=== PATIENT | female | born 1995 | race Caucasian/White ===

== ENCOUNTER 2020-09-06 00:53 | Emergency (ER) | payer OTHER ==
[2020-09-06 01:05] VITALS: BP 108/74; PULSE 88; TEMP 98.3; BMI 25.4
[2020-09-06 01:36] LABS: BASO % 1.1 % (0-2.0); EOS % 1.7 % (0-4.5); HEMATOCRIT 38.7 % (32.4-45.2); LYMPH % 21.7 % (8-40); MCH 29.2 pg (25.7-33.7); MCHC 33.6 g/dl (32.0-36.0); MEAN CELL VOLUME 86.9 fl (80-96); MEAN PLT VOLUME 9.7 fl (7.5-11.1); MONO % 7.6 % (3.8-10.2); NEUT % 67.9 % (42.8-82.8); PLATELET COUNT 219 K/MM3 (134-434); RBC 4.45 M/mm3 (3.60-5.2); RDW 13.3 % (11.6-15.6); WHITE BLOOD COUNT 9.3 K/mm3 (4.0-10.0)
[2020-09-06 01:55] LABS: CHLORIDE 105 mmol/L (98-107); SODIUM 139 mmol/L (136-145)
[2020-09-06 01:56] LABS: CALCIUM 8.9 mg/dL (8.5-10.1)
[2020-09-06 01:57] LABS: ALBUMIN 3.9 g/dl (3.4-5.0); ANION GAP 6 MMOL/L (8-16); BLOOD UREA NITROGEN 20.4 mg/dL (7-18); CO2 28 mmol/L (21-32); GLUCOSE,RANDOM 99 mg/dL (74-106)
[2020-09-06 02:00] LABS: CREATININE 0.9 mg/dL (0.55-1.3); SGOT/AST 27 U/L (15-37); SGPT/ALT 55 U/L (13-61)
[2020-09-06 02:02] LABS: BILIRUBIN,TOTAL 0.4 mg/dL (0.2-1); TOT PROT 7.5 g/dl (6.4-8.2)
[2020-09-06 02:03] LABS: ALK PHOS 109 U/L (45-117)
== END 2020-09-06 02:47 | disposition home or self-care (01) ==
LOC: JER 00:53
DX: R07.89 Other chest pain (principal)
CPT/HCPCS: 36415; 71046-TC-FY; 80053; 82550; 84484; 85025; 85379; 93005; 93010; 99282-25

== ENCOUNTER 2021-12-19 18:15 | Emergency (ER) | payer OTHER ==
[2021-12-19 19:05] VITALS: BP 116/67; PULSE 111; TEMP 98; BMI 31.4
== END 2021-12-19 19:39 | disposition home or self-care (01) ==
LOC: JERFT 18:15 → JER 18:15 → JERFT 19:39
DX: U07.1 COVID-19 (principal)
CPT/HCPCS: 99283-25

== ENCOUNTER 2022-09-23 08:35 | Emergency (ER) | payer OTHER ==
[2022-09-23 08:46] VITALS: RESP 18; BMI 23.9
[2022-09-23] MEDS ORDERED: IBUPROFEN 600 MG TABLET (FP) PO ONE ×2 (09:07→09:25)
[2022-09-23] MEDS ORDERED: MAG HYDROX/AL HYDROX/SIMETH 30 ML UNIT-DOSE CUP PO ONE (09:07)
[2022-09-23] MEDS ORDERED: ACETAMINOPHEN 500 MG TABLET (FP) PO ONE (09:07)
[2022-09-23] MEDS ORDERED: MAG HYDROX/AL HYDROX/SIMETH 30 ML UNIT-DOSE CUP ONE (09:26)
[2022-09-23] MEDS ORDERED: ACETAMINOPHEN 500 MG TABLET (FP) ONE (09:26)
[2022-09-23 09:39] LABS: BASO % 0.5 % (0-2.0); EOS % 1.1 % (0-4.5); HEMATOCRIT 39.5 % (32.4-45.2); HEMOGLOBIN 13.4 GM/dL (10.7-15.3); MCH 28.7 pg (25.7-33.7); MCHC 33.9 g/dl (32.0-36.0); MEAN CELL VOLUME 84.6 fl (80-96); MEAN PLT VOLUME 8.8 fl (7.5-11.1); MONO % 4.9 % (3.8-10.2); NEUT % 72.5 % (42.8-82.8); PLATELET COUNT 249 10^3/uL (134-434); RBC 4.67 M/mm3 (3.60-5.2); RDW 13.4 % (11.6-15.6); WHITE BLOOD COUNT 8.2 K/mm3 (4.0-10.0)
[2022-09-23 09:55] LABS: INR 1.09 (0.83-1.09); PROTHROMBIN TIME (PATIENT) 12.6 SEC (9.7-13.0)
[2022-09-23 10:02] LABS: CHLORIDE 104 mmol/L (98-107); SODIUM 140 mmol/L (136-145)
[2022-09-23 10:06] LABS: ALBUMIN 3.8 g/dl (3.4-5.0); ANION GAP 5 MMOL/L (8-16); BLOOD UREA NITROGEN 16.7 mg/dL (7-18); CALCIUM 9.3 mg/dL (8.5-10.1); CO2 31 mmol/L (21-32); GLUCOSE,RANDOM 81 mg/dL (74-106)
[2022-09-23 10:09] LABS: CREATININE 0.6 mg/dL (0.55-1.3); SGOT/AST 9 U/L (15-37); SGPT/ALT 30 U/L (13-61)
[2022-09-23 10:11] LABS: TOT PROT 7.8 g/dl (6.4-8.2)
[2022-09-23 10:12] LABS: ALK PHOS 102 U/L (45-117)
[2022-09-23 10:28] LABS: BILIRUBIN,TOTAL 0.4 mg/dL (0.2-1)
[2022-09-23 12:26] VITALS: PULSE 65; TEMP 97.2
[2022-09-23 12:28] VITALS: BP 95/60
== END 2022-09-23 12:28 | disposition home or self-care (01) ==
LOC: JERFT 08:35
DX: R07.1 Chest pain on breathing (principal); R07.81 Pleurodynia
CPT/HCPCS: 0241U-QW; 36415; 71046-TC-FY; 71275-TC; 80053; 84484; 85025; 85379; 85610; 93005; 93010; 99285-25; Q9967

== ENCOUNTER 2023-03-30 02:27 | Emergency (ER) | payer OTHER ==
[2023-03-30 02:35] VITALS: BP 116/61; PULSE 74; RESP 18; TEMP 98.4; BMI 25.4
[2023-03-30] MEDS ORDERED: ACETAMINOPHEN 1000 MG/100 ML BAG IVPB ONE (02:43)
[2023-03-30] MEDS ORDERED: SODIUM CHLORIDE 0.9% 500 ML INFUS.BAG IV ONE (02:43)
[2023-03-30] MEDS ORDERED: FAMOTIDINE 20 MG/50 ML IVPB 20 MG/50 ML MG IVPB ONE ×2 (02:43→02:57)
[2023-03-30] MEDS ORDERED: ONDANSETRON 4 MG/2 ML VIAL IVPUSH ONE (02:43)
[2023-03-30] MEDS ORDERED: ACETAMINOPHEN INJECTION 100 ML IVPB ONE (02:53)
[2023-03-30] MEDS ORDERED: ONDANSETRON 4 MG/2 ML VIAL ONE (02:56)
[2023-03-30 03:01] LABS: BASO % 0.4 % (0-2.0); EOS % 1.3 % (0-4.5); HEMATOCRIT 35.7 % (32.4-45.2); HEMOGLOBIN 12.3 GM/dL (10.7-15.3); LYMPH % 18.3 % (8-40); MCH 28.5 pg (25.7-33.7); MCHC 34.3 g/dl (32.0-36.0); MEAN CELL VOLUME 83.1 fl (80-96); MEAN PLT VOLUME 9.3 fl (7.5-11.1); MONO % 5.5 % (3.8-10.2); NEUT % 74.5 % (42.8-82.8); PLATELET COUNT 174 10^3/uL (134-434); RDW 12.9 % (11.6-15.6); WHITE BLOOD COUNT 9.7 K/mm3 (4.0-10.0)
[2023-03-30 03:23] LABS: POTASSIUM 4.2 mmol/L (3.5-5.1)
[2023-03-30 03:24] LABS: CALCIUM 8.6 mg/dL (8.5-10.1)
[2023-03-30 03:25] LABS: ALBUMIN 3.6 g/dl (3.4-5.0); BLOOD UREA NITROGEN 24.3 mg/dL (7-18); MAGNESIUM 1.8 mg/dL (1.8-2.4)
[2023-03-30 03:30] LABS: BILIRUBIN,TOTAL 0.2 mg/dL (0.2-1); TOT PROT 7.5 g/dl (6.4-8.2)
[2023-03-30 03:30] LABS: EPI CELLS >36 /uL (0-25.1); HCG,QUALITATIVE URINE Negative; HYALINE CASTS 0 /uL (0-3.1); URINE APPEARANCE CLEAR; URINE BACTERIA 152 /uL (0-1359); URINE BILIRUBIN NEGATIVE (NEGATIVE); URINE COLOR YELLOW; URINE GLUCOSE (UA) NEGATIVE (NEGATIVE); URINE KETONE NEGATIVE (NEGATIVE); URINE LEUK ESTERASE NEGATIVE (NEGATIVE); URINE NITRITE NEGATIVE (NEGATIVE); URINE PROTEIN NEGATIVE (NEGATIVE); URINE RBC 26 /uL (0-23.9); URINE WBC 20 /uL (0-25.8)
[2023-03-30 04:03] LABS: CREATININE 0.8 mg/dL (0.55-1.3)
== END 2023-03-30 06:38 | disposition left against medical advice (07) ==
LOC: JER 02:27
PROC: 3E033GC Introduction of Other Therapeutic Substance into Peripheral Vein, Percutaneous Approach (ICD-10-PCS; principal; 2023-03-30)
PROC: 3E033NZ Introduction of Analgesics, Hypnotics, Sedatives into Peripheral Vein, Percutaneous Approach (ICD-10-PCS; 2023-03-30)
PROC: 3E033GC Introduction of Other Therapeutic Substance into Peripheral Vein, Percutaneous Approach (ICD-10-PCS; 2023-03-30)
DX: R10.84 Generalized abdominal pain (principal); R11.2 Nausea with vomiting, unspecified; R07.2 Precordial pain; R06.02 Shortness of breath; Z20.822 Contact with and (suspected) exposure to COVID-19
CPT/HCPCS: 0241U-QW; 36415; 74177-TC; 80053; 81003; 83690; 83735; 84484; 84703; 85025; 87086; 99285-25; Q9967

== ENCOUNTER 2023-08-23 22:34 | Day surgery (SDC) | payer OTHER ==
[2023-08-23] MEDS ORDERED: ACETAMINOPHEN 1000 MG/100 ML BAG IVPB ONE (23:48)
[2023-08-23] MEDS ORDERED: SODIUM CHLORIDE 0.9% 500 ML INFUS.BAG IV ONE (23:48)
[2023-08-23] MEDS ORDERED: ONDANSETRON 4 MG/2 ML VIAL IVPUSH ONE (23:48)
[2023-08-23] MEDS ORDERED: FAMOTIDINE 20 MG/50 ML IVPB 20 MG/50 ML MG IVPB ONE (23:48)
[2023-08-24] MEDS ORDERED: ACETAMINOPHEN INJECTION 100 ML IVPB ONE (00:10)
[2023-08-24] MEDS ORDERED: ONDANSETRON 4 MG/2 ML VIAL ONE ×2 (00:10→18:04)
[2023-08-24] MEDS ORDERED: FAMOTIDINE 20 MG/50 ML IVPB 20 MG/50 ML MG IVPB ONE (00:10)
[2023-08-24 00:24] LABS: BASO % 0.5 % (0-2.0); EOS % 0.5 % (0-4.5); HEMOGLOBIN 14.1 GM/dL (10.7-15.3); MCH 27.2 pg (25.7-33.7); MCHC 32.1 g/dl (32.0-36.0); MEAN CELL VOLUME 84.8 fl (80-96); MONO % 5.4 % (3.8-10.2); NEUT % 84.6 % (42.8-82.8); PLATELET COUNT 259 10^3/uL (134-434); RBC 5.18 M/mm3 (3.60-5.2); RDW 13.2 % (11.6-15.6); WHITE BLOOD COUNT 16.9 K/mm3 (4.0-10.0)
[2023-08-24 00:40] LABS: POTASSIUM 4.8 mmol/L (3.5-5.1)
[2023-08-24 00:42] LABS: ALBUMIN 3.6 g/dl (3.4-5.0); BLOOD UREA NITROGEN 23.4 mg/dL (7-18); CALCIUM 8.9 mg/dL (8.5-10.1); MAGNESIUM 2.1 mg/dL (1.8-2.4)
[2023-08-24 00:45] LABS: CREATININE 0.7 mg/dL (0.55-1.3)
[2023-08-24 00:47] LABS: BILIRUBIN,TOTAL 0.6 mg/dL (0.2-1); TOT PROT 8.3 g/dl (6.4-8.2)
[2023-08-24] MEDS ORDERED: MAG HYDROX/AL HYDROX/SIMETH -MYLANTA- ORAL SUSPENSION PO ONE (01:31)
[2023-08-24] MEDS ORDERED: LIDOCAINE VISCOUS 2% ORAL/TOP 15 ML UNIT-DOSE CUP MM ONE (01:31)
[2023-08-24 01:44] LABS: URINE APPEARANCE Clear; URINE BILIRUBIN Negative (NEGATIVE); URINE COLOR Yellow; URINE GLUCOSE (UA) Negative (NEGATIVE); URINE KETONE Trace (NEGATIVE); URINE LEUK ESTERASE Negative (NEGATIVE); URINE NITRITE Negative (NEGATIVE); URINE PROTEIN Trace (NEGATIVE); URINE UROBILINOGEN 4.0 E.U/dl mg/dL (0.2-1.0)
[2023-08-24 03:27] LABS: EPI CELLS 164.6 /uL (0-25.1); HYALINE CASTS 17.13 /uL (0-3.1); URINE BACTERIA 172.7 /uL (0-1359); URINE RBC 39.5 /uL (0-23.9); URINE WBC 34.5 /uL (0-25.8)
[2023-08-24] MEDS ORDERED: LIDOCAINE VISCOUS 2% ORAL/TOP 15 ML UNIT-DOSE CUP ONE (03:39)
[2023-08-24] MEDS ORDERED: MAG HYDROX/AL HYDROX/SIMETH 30 ML UNIT-DOSE CUP ONE (03:40)
[2023-08-24] MEDS ORDERED: PIPERACILLIN/TAZOB 3.375 GM 3.375 GM in DEXTROSE 5%-WATER - 50 ML IVPB ONE (07:48)
[2023-08-24] MEDS ORDERED: PIPERACILLIN/TAZOB 3.375 GM 3.375 GM/50 ML BAG IVPB ONE (07:51)
[2023-08-24] MEDS ORDERED: morphine SULFATE 4 MG/ML VIAL IVPUSH PRN (08:37)
[2023-08-24] MEDS ORDERED: IBUPROFEN 800 MG/8 ML IJ IVPB PRN (08:37)
[2023-08-24] MEDS ORDERED: LACTATED RINGERS SOLUTION 1,000 ML IV SCH ×3 (08:45→19:45)
[2023-08-24 09:32] LABS: INR 1.06 (0.83-1.09); PROTHROMBIN TIME (PATIENT) 12.3 SEC (9.7-13.0)
[2023-08-24 09:36] LABS: ACTIVATED PTT 33.5 SECONDS (25.2-36.5)
[2023-08-24 15:21] VITALS: BMI 24.5
[2023-08-24] MEDS ORDERED: PIPERACILLIN/TAZOB 3.375 GM 3.375 GM in DEXTROSE 5%-WATER - 50 ML IVPB SCH (16:00)
[2023-08-24] MEDS ORDERED: BUPIVACAINE HCL/PF 0.25% (2.5MG/ML) 10 ML VIAL ONE (17:44)
[2023-08-24] MEDS ORDERED: DEXAMETHASONE SOD PHOSPHATE 4 MG/1 ML VIAL ONE (18:04)
[2023-08-24] MEDS ORDERED: LIDOCAINE HCL/PF 2% SDV 5ML VIAL ONE (18:04)
[2023-08-24] MEDS ORDERED: PROPOFOL 20 ML ONE (18:04)
[2023-08-24] MEDS ORDERED: ROCURONIUM BROMIDE 50 MG/5 ML SYRINGE ONE (18:07)
[2023-08-24] MEDS ORDERED: SUGAMMADEX SODIUM 200 MG/2 ML VIAL ONE (18:07)
[2023-08-24] MEDS ORDERED: MIDAZOLAM HCL 2 MG/2 ML SINGLE DOSE VIAL ONE (18:15)
[2023-08-24] MEDS ORDERED: BUPIVACAINE HCL/PF 0.25% (2.5MG/ML) 10 ML VIAL IJ ONE (19:16)
[2023-08-24] MEDS ORDERED: ONDANSETRON 4 MG/2 ML VIAL IVPUSH PRN ×2 (19:34→19:45)
[2023-08-24] MEDS ORDERED: oxyCODONE HCL 5 MG TABLET PO PRN (19:45)
[2023-08-24] MEDS ORDERED: IBUPROFEN 600 MG TABLET (FP) PO PRN (19:45)
[2023-08-24] MEDS ORDERED: ACETAMINOPHEN 500 MG TABLET (FP) PO PRN (19:45)
[2023-08-24] MEDS: oxyCODONE HCL 5 MG TABLET PO PRN (22:12)
[2023-08-25] MEDS: oxyCODONE HCL 5 MG TABLET PO PRN (07:10)
[2023-08-25 09:40] LABS: BASO % 0.3 % (0-2.0); HEMATOCRIT 38.3 % (32.4-45.2); HEMOGLOBIN 12.2 GM/dL (10.7-15.3); LYMPH % 9.3 % (8-40); MCH 27.3 pg (25.7-33.7); MCHC 31.8 g/dl (32.0-36.0); MEAN CELL VOLUME 85.8 fl (80-96); MEAN PLT VOLUME 9.9 fl (7.5-11.1); MONO % 4.3 % (3.8-10.2); NEUT % 86.1 % (42.8-82.8); PLATELET COUNT 223 10^3/uL (134-434); RBC 4.46 M/mm3 (3.60-5.2); RDW 12.7 % (11.6-15.6); WHITE BLOOD COUNT 11.2 K/mm3 (4.0-10.0)
[2023-08-25 10:00] LABS: POTASSIUM 4.3 mmol/L (3.5-5.1)
[2023-08-25 10:01] LABS: CALCIUM 9.7 mg/dL (8.5-10.1)
[2023-08-25 10:02] LABS: ALBUMIN 3.3 g/dl (3.4-5.0); BLOOD UREA NITROGEN 11.1 mg/dL (7-18); MAGNESIUM 2.2 mg/dL (1.8-2.4)
[2023-08-25 10:05] LABS: CREATININE 0.6 mg/dL (0.55-1.3); PHOSPHOROUS 3.7 mg/dL (2.5-4.9)
[2023-08-25 10:06] LABS: TOT PROT 7.3 g/dl (6.4-8.2)
[2023-08-25 10:07] LABS: BILIRUBIN,TOTAL 0.5 mg/dL (0.2-1)
[2023-08-25 10:58] VITALS: BP 111/63; PULSE 73; RESP 19; TEMP 98.7
== END 2023-08-25 14:42 | disposition home or self-care (01) ==
LOC: JER 22:34 → JERBED 08-24 07:39 → UNDOADMOB 08-24 07:39 → INTOOBSV 08-24 07:39 → JERBED 08-24 08:36 → UNDOADMOB 08-24 08:36 → JERBED 08-24 15:35 → J8W 08-24 15:35 → JASUSAT 08-25 10:12 → J8W 08-25 10:28 → JASUSAT 08-25 14:42
PROVIDERS: ATTEND Nurse Practitioner Family
PROC: 0FT44ZZ Resection of Gallbladder, Percutaneous Endoscopic Approach (ICD-10-PCS; principal; 2023-08-25)
DX: K81.0 Acute cholecystitis (principal)
CPT/HCPCS: 0241U-QW; 36415; 71045-TC-FY; 74177-TC; 80053; 81003; 83690; 83735; 84100; 84484; 84703; 85025; 85610; 85730; 86850; 86900; 86901; 87086; 87651; 93005; 93010; 94760; 99285-25

== ENCOUNTER 2023-10-15 10:28 | Emergency (ER) | payer OTHER ==
[2023-10-15 10:31] VITALS: BMI 24.5
[2023-10-15] MEDS ORDERED: ONDANSETRON 4 MG/2 ML VIAL ONE (11:19)
[2023-10-15] MEDS ORDERED: ACETAMINOPHEN INJECTION 100 ML IVPB ONE (11:22)
[2023-10-15] MEDS: LACTATED RINGERS SOLUTION 1,000 ML/1,000 ML INFUS.BAG IV ONE (11:27)
[2023-10-15] MEDS: ONDANSETRON 4 MG/2 ML VIAL IVPUSH ONE (11:27)
[2023-10-15] MEDS: ACETAMINOPHEN 1000 MG/100 ML BAG IVPB ONE (11:27)
[2023-10-15 11:35] LABS: BASO % 0.7 % (0-2.0); HEMATOCRIT 41.5 % (32.4-45.2); HEMOGLOBIN 13.8 GM/dL (10.7-15.3); LYMPH % 4.5 % (8-40); MCH 28.4 pg (25.7-33.7); MCHC 33.3 g/dl (32.0-36.0); MEAN CELL VOLUME 85.3 fl (80-96); MEAN PLT VOLUME 9.2 fl (7.5-11.1); MONO % 3.4 % (3.8-10.2); NEUT % 90.4 % (42.8-82.8); PLATELET COUNT 210 10^3/uL (134-434); RBC 4.87 M/mm3 (3.60-5.2); RDW 13.5 % (11.6-15.6); WHITE BLOOD COUNT 10.4 K/mm3 (4.0-10.0)
[2023-10-15 11:43] LABS: POTASSIUM 4.2 mmol/L (3.5-5.1)
[2023-10-15 11:46] LABS: ALBUMIN 3.8 g/dl (3.4-5.0); BLOOD UREA NITROGEN 23.5 mg/dL (7-18)
[2023-10-15 11:49] LABS: CREATININE 0.6 mg/dL (0.55-1.3)
[2023-10-15 11:50] LABS: BILIRUBIN,TOTAL 0.7 mg/dL (0.2-1); TOT PROT 8.1 g/dl (6.4-8.2)
[2023-10-15 13:35] VITALS: BP 96/58; PULSE 82; RESP 20; TEMP 98.1
== END 2023-10-15 13:58 | disposition home or self-care (01) ==
LOC: JER 10:28
PROC: 3E033NZ Introduction of Analgesics, Hypnotics, Sedatives into Peripheral Vein, Percutaneous Approach (ICD-10-PCS; principal; 2023-10-15)
PROC: 3E033GC Introduction of Other Therapeutic Substance into Peripheral Vein, Percutaneous Approach (ICD-10-PCS; 2023-10-15)
PROC: 3E0337Z Introduction of Electrolytic and Water Balance Substance into Peripheral Vein, Percutaneous Approach (ICD-10-PCS; 2023-10-15)
DX: R11.2 Nausea with vomiting, unspecified (principal); K52.9 Noninfective gastroenteritis and colitis, unspecified; Z20.822 Contact with and (suspected) exposure to COVID-19
CPT/HCPCS: 0241U-QW; 36415; 80053; 84703; 85025; 99284-25; J0131

== ENCOUNTER 2025-03-21 06:09 | Day surgery (SDC) | payer OTHER ==
[2025-03-14 13:20] VITALS: BMI 25.7
[2025-03-21] MEDS ORDERED: BUPIVACAINE HCL/PF 0.25% (2.5MG/ML) 10 ML VIAL ONE (07:29)
[2025-03-21] MEDS ORDERED: LIDOCAINE HCL 1%, 10 MG/ML (20ML VIAL) ONE (07:29)
[2025-03-21] MEDS ORDERED: PROPOFOL 20 ML ONE (08:18)
[2025-03-21] MEDS ORDERED: MIDAZOLAM HCL 2 MG/2 ML SINGLE DOSE VIAL ONE ×2 (08:18→09:54)
[2025-03-21] MEDS ORDERED: ROCURONIUM BROMIDE 50 MG/5 ML SYRINGE ONE (08:25)
[2025-03-21] MEDS: ceFAZolin 2 GRAM PREMIX BAG IVPB ONE (08:44)
[2025-03-21] MEDS: BUPIVACAINE HCL/PF 0.25% (2.5MG/ML) 10 ML VIAL IJ ONE (08:56)
[2025-03-21] MEDS ORDERED: SUGAMMADEX SODIUM 200 MG/2 ML VIAL ONE (09:30)
[2025-03-21] MEDS ORDERED: IBUPROFEN 600 MG TABLET (FP) PO PRN (13:09)
[2025-03-21] MEDS ORDERED: SIMETHICONE 80 MG TAB.CHEW (FP) PO PRN (13:09)
[2025-03-21] MEDS ORDERED: ONDANSETRON 4 MG/2 ML VIAL IVPB PRN (13:09)
[2025-03-21] MEDS ORDERED: IBUPROFEN (CALDOLOR) 800 MG/200 ML PREMIX BAGS IVPB PRN (13:09)
[2025-03-21] MEDS ORDERED: ACETAMINOPHEN 500 MG TABLET (FP) PO SCH (13:15)
[2025-03-21] MEDS ORDERED: OXYTOCIN 20 UNITS in 0.9% NS 20 UNIT/1,000 ML INFUS.BAG IV SCH (13:15)
[2025-03-21 14:21] VITALS: BP 126/80; PULSE 62; RESP 20; TEMP 97.6
[2025-03-21] MEDS ORDERED: ACETAMINOPHEN 1000 MG/100 ML BAG IVPB SCH (15:00)
[2025-03-21] MEDS ORDERED: CEFAZOLIN SODIUM 2 GM in DEXTROSE 5%-WATER 100 ML IVPB SCH (19:00)
[2025-03-21] MEDS ORDERED: IBUPROFEN (CALDOLOR) 800 MG/200 ML PREMIX BAGS IVPB SCH (20:00)
[2025-03-21] MEDS ORDERED: SENNOSIDES/DOCUSATE COMBO (SENNA PLUS) TABLET (UD) PO SCH (22:00)
[2025-03-22] MEDS ORDERED: ENOXAPARIN NA (PORCINE) 40 MG/0.4 ML DISP.SYRIN SQ SCH (10:00)
[2025-03-22] MEDS ORDERED: BISACODYL 10 MG SUPP.RECT RC PRN (13:09)
[2025-03-22] MEDS ORDERED: IBUPROFEN 600 MG TABLET (FP) PO PRN (13:09)
[2025-03-22] MEDS ORDERED: ACETAMINOPHEN 500 MG TABLET (FP) PO SCH (14:00)
== END 2025-03-21 13:30 | disposition home or self-care (01) ==
LOC: JASU-SURG 06:09
PROVIDERS: ATTEND Obstetrics & Gynecology
PROC: 0UT74ZZ Resection of Bilateral Fallopian Tubes, Percutaneous Endoscopic Approach (ICD-10-PCS; principal; 2025-03-21 08:00)
DX: Z30.2 Encounter for sterilization (principal)
CPT/HCPCS: 81025; 88305-TC; 94760